=== PATIENT | female | born 1950 | race Caucasian/White ===

== ENCOUNTER 2019-07-24 08:21 | Emergency (ER) | payer OTHER, BC ==
[2019-07-24] MEDS ORDERED: Acetaminophen/HYDROcodone 325-5 MG Tab PO ONE (08:35)
--- NOTE | 2019-07-24 09:16 | CT ---
[id number] CT/CT Cervical Spine WO IV EXAM: NONCONTRAST CERVICAL SPINE CT INDICATION: FALL COMPARISON: None. DISCUSSION: Straightening of the cervical lordosis. 2 mm spondylolisthesis C6-C7. The vertebral bodies are otherwise normal in height and alignment. No fracture or suspicious osseous lesion is identified. Moderate degenerative disc disease C3-C4 and C5-C6 with mild to moderate changes at the remaining disc levels. Mild to moderate facet arthropathy throughout the cervical spine. 7 mm noncalcified nodular opacity abutting the right upper lobe pleura (image 170 series 2). IMPRESSION: 1. No evidence of acute cervical spine trauma. Germán Ordaz MD 07/24/19 0916 Thank you for allowing us to participate in the care of your patient.
--- NOTE | 2019-07-24 09:18 | CT ---
[id number] CT/CT Head WO IV EXAM: CT Head WO IV CLINICAL DATA: FALL COMPARISON STUDY: None FINDINGS: No intracranial hemorrhage, extra-axial fluid collection, mass, or acute ischemia. Generalized parenchymal atrophy with scattered areas of nonspecific white matter disease, commonly seen as sequela of chronic microvascular ischemia. Right frontal scalp hematoma without underlying calvarial fracture. Paranasal sinuses and mastoid air cells are clear. IMPRESSION: No acute intracranial findings. Audie Liu DO 07/24/19 0917 Thank you for allowing us to participate in the care of your patient.
--- NOTE | 2019-07-24 11:06 | EDM.PDOC ---
ED HPI GENERAL MEDICAL PROBLEM - General Chief Complaint: General Stated Complaint: FALL Time Seen by Provider: 07/24/19 08:47 Source of Information: Reports: Patient History Limitations: Reports: No Limitations - History of Present Illness INITIAL COMMENTS - FREE TEXT/NARRATIVE: Pt. presents to ER with complaints of head and facial pain. Pt. states that she slipped on the tile coming into work today, striking the R side of her head/ face on the door jam. Denies any LOC. She is not anticoagulated. Pt. is also experiencing some mid posterior/R lateral neck pain as well. Denies any injury elsewhere. Pt. denies any acute vision loss or change. No numbness/tingling in extremities. No problems with speech or ambulation. Denies any nausea or vomiting. Onset: Today Location: Reports: Head, Face Quality: Reports: Ache, Throbbing Associated Symptoms: Reports: Headaches. Denies: Confusion, Chest Pain, Malaise , Nausea/Vomiting, Rash, Shortness of Breath, Syncope, Weakness Head Pain Score (Numeric/FACES): 4 - Related Data Allergies Allergy/AdvReac Type Severity Reaction Status Date / Time No Known Allergies Allergy Verified 07/24/19 08:40 Home Meds: Home Meds Citalopram [Citalopram HBr] 40 mg PO DAILY 07/24/19 [History] hydroCHLOROthiazide [Hydrochlorothiazide] 25 mg PO DAILY 07/24/19 [History] Past Medical History - Past Surgical History GI Surgical History: Reports: Bariatric Procedure Social & Family History - Tobacco Use Smoking Status *Q: Never Smoker ED ROS GENERAL - Review of Systems Review Of Systems: See Below Constitutional: Reports: No Symptoms HEENT: Reports: Other (see above) Respiratory: Reports: No Symptoms Cardiovascular: Reports: No Symptoms Endocrine: Reports: No Symptoms GI/Abdominal: Reports: No Symptoms : Reports: No Symptoms Musculoskeletal: Reports: Neck Pain Skin: Reports: No Symptoms Neurological: Reports: Headache Psychiatric: Reports: No Symptoms Hematologic/Lymphatic: Reports: No Symptoms Immunologic: Reports: No Symptoms ED EXAM, GENERAL - Physical Exam Exam: See Below Exam Limited By: No Limitations General Appearance: Alert, WD/WN, No Apparent Distress Eye Exam: Bilateral Eye: EOMI, Normal Fundi, Normal Inspection, PERRL Nose: Normal Inspection, No Blood Throat/Mouth: Normal Inspection, Normal Lips, Normal Teeth, Normal Voice, No Airway Compromise Head: Other (large hematoma to R temporal area with adjacent, 1 cm superficial laceration above eyebrow.) Neck: Normal Inspection, Supple, Non-Tender, Full Range of Motion Extremities: Normal Inspection, Normal Range of Motion, Non-Tender, No Pedal Edema, Normal Capillary Refill Neurological: Alert, Oriented, CN II-XII Intact, Normal Cognition, Normal Gait, Normal Reflexes, No Motor/Sensory Deficits Skin Exam: Warm, Dry, Intact, Normal Color, No Rash ED GENERAL MEDICAL PROCEDURES - Laceration/Wound Repair Right Forehead Lac/wound length in cm: 1 Appearance: Superficial Distal NVT: Neuro & Vascular Intact Skin Prep: Chlorhexidine (Hibiciens), Saline Closed with: Dermabond Course - Vital Signs Last Recorded V/S: Last Vital Signs Temp 36.6 C 07/24/19 08:41 Pulse 74 07/24/19 08:41 Resp 16 07/24/19 08:41 BP 141/65 H 07/24/19 08:41 Pulse Ox 97 07/24/19 08:41 - Orders/Labs/Meds Meds: Medications Discontinued Medications Generic Name Dose Route Start Last Admin Trade Name Freq PRN Reason Stop Dose Admin Hydrocodone Bitart/Acetaminophen 1 tab 07/24/19 08:35 07/24/19 08:38 Maple 325-5 Mg PO 07/24/19 08:36 1 tab ONETIME ONE Administration - Radiology Interpretation Free Text/Narrative:: CT brain and c-spine were both negative for acute pathology. Departure - Departure Time of Disposition: 09:30 Disposition: Home, Self-Care 01 Clinical Impression: Closed head injury, Cervical strain, acute - Discharge Information Instructions: Head Injury, Adult, Tissue Adhesive Wound Care, Cervical Sprain, [id number] Referrals: PCP,Not In Area [Primary Care Provider] - Forms: ED Department Discharge Additional Instructions: Home to rest. No TV, reading, or activities requiring a lot of "brain power". Sleep and rest as much as possible. Tylenol and ibuprofen as needed for discomfort. Drink plenty of fluids. Recheck in clinic in 10-14 days, sooner if not gradually improving. - Problem List Review Problem List Initiated/Reviewed/Updated: Yes - Assessment/Plan Plan: Home to rest. No TV, reading, or activities requiring a lot of "brain power". Sleep and rest as much as possible. Tylenol and ibuprofen as needed for discomfort. Drink plenty of fluids. Recheck in clinic in 10-14 days, sooner if not gradually improving.
== END 2019-07-24 09:40 | disposition home or self-care (01) ==
LOC: VM.ED 08:21
DX: S01.81XA Laceration without foreign body of other part of head, initial encounter (principal); S16.1XXA Strain of muscle, fascia and tendon at neck level, initial encounter; W01.198A Fall on same level from slipping, tripping and stumbling with subsequent striking against other object, initial encounter
CPT/HCPCS: 12011; 70450; 72125; 99284-25; A9270-GY

== ENCOUNTER 2023-05-16 17:11 | Emergency (ER) | payer MEDICARE, OTHER ==
[2023-05-16 18:06] LABS: BASOPHILS ABSOLUTE AUTO 0.1 x10^3/uL (0.0-0.2); BASOPHILS PERCENT AUTO 0.8 % (0.2-1.2); EOSINOPHILS ABSOLUTE AUTO 0.3 x10^3/uL (0.0-0.5); EOSINOPHILS PERCENT AUTO 5.3 % (0.0-4.0); HEMATOCRIT 42.2 % (33.0-47.0); HEMOGLOBIN 14.3 g/dL (12.0-16.0); IMMATURE GRAN ABSOLUTE AUTO 0.01 x10^3/uL (0.00-0.07); LYMPHOCYTES ABSOLUTE AUTO 1.5 x10^3/uL (1.0-4.8); LYMPHOCYTES PERCENT AUTO 25.5 % (25.0-50.0); MEAN CORPUSCULAR HEMOGLOBIN 31.4 pg (26.0-32.0); MEAN CORPUSCULAR HGB CONC 33.9 g/dL (32.0-36.0); MEAN CORPUSCULAR VOLUME 92.7 fL (78.0-93.0); MONOCYTES ABSOLUTE AUTO 0.7 x10^3/uL (0.0-0.8); MONOCYTES PERCENT AUTO 11.4 % (2.0-11.0); NEUTROPHILS ABSOLUTE AUTO 3.4 x10^3/uL (1.8-7.7); NEUTROPHILS PERCENT AUTO 56.8 % (50.0-80.0); PLATELET COUNT,PLT 191 x10^3/uL (130-400); RED BLOOD CELL COUNT 4.55 x10^6/uL (4.00-5.50)
[2023-05-16] MEDS: Sodium Chloride 0.9% 10 ML Syringe FLUSH PRN (18:18)
[2023-05-16] MEDS: HYDROmorphone 0.5 MG/0.5 ML Syringe IVPUSH ONE (18:19)
[2023-05-16] MEDS: Ondansetron 4 MG/2 ML SDV IVPUSH ONE (18:19)
[2023-05-16 18:22] LABS: INR 2.6 (2.0-3.5); PTT,PARTIAL THROMBOPLSTIN TIME 39.1 SEC (23.6-33.6)
[2023-05-16] MEDS ORDERED: Iopamidol 612 MG/ML 50 ML SDV IARTIC ONE (18:27)
[2023-05-16 18:28] LABS: LACTIC ACID 0.9 mmol/L (0.4-2.0)
[2023-05-16 18:35] LABS: A/G RATIO 1.12; ALBUMIN 3.8 g/dL (3.4-5.0); ANION GAP 11.9 mmol/L (5-15); BILIRUBIN TOTAL 0.4 mg/dL (0.2-1.0); C-REACTIVE PROTEIN 0.64 mg/dL (<=0.30); CALCIUM 9.6 mg/dL (8.5-10.1); CREATININE 1.1 mg/dL (0.55-1.02); EST CRCL DRUG DOSING (CG) 40.99 mL/min; MAGNESIUM 2.2 mg/dL (1.8-2.4); PHOSPHORUS 3.6 mg/dL (2.6-4.7); POTASSIUM,K 3.9 mmol/L (3.5-5.1); PROTEIN TOTAL,TP 7.2 g/dL (6.4-8.2)
[2023-05-16 19:06] LABS: APPEARANCE,URINE CLEAR (CLEAR); BILIRUBIN,URINE NEGATIVE (NEGATIVE); COLOR,URINE YELLOW (YELLOW); GLUCOSE,URINE NEGATIVE (NEGATIVE); KETONES,URINE NEGATIVE (NEGATIVE); LEUKOCYTE ESTERASE,URINE NEGATIVE (NEGATIVE); NITRITE,URINE NEGATIVE (NEGATIVE); OCCULT BLOOD,URINE NEGATIVE (NEGATIVE); PROTEIN,URINE NEGATIVE (NEGATIVE); UROBILINOGEN,URINE 0.2 EU/dL (0.2)
[2023-05-16] MEDS ORDERED: Iopamidol 612 MG/ML 50 ML SDV IVPUSH ONE (19:12)
[2023-05-16] MEDS: Iopamidol 612 MG/ML 100 ML Bottle IVPUSH ONE (20:18)
[2023-05-16] MEDS: Iopamidol 612 MG/ML 30 ML SDV IVPUSH ONE (20:18)
[2023-05-16] MEDS: methylPREDNISolone Sodium Succinate 125 MG/2 ML SDV IVPUSH ONE (21:33)
[2023-05-16] MEDS: Take Home: Acetaminophen/HYDROcodone 325-5 MG, 5 Tab Pack PO ONE (21:37)
== END 2023-05-16 21:38 | disposition home or self-care (01) ==
LOC: VM.ED 17:11
DX: R10.10 Upper abdominal pain, unspecified (principal); M19.90 Unspecified osteoarthritis, unspecified site; E66.9 Obesity, unspecified; Z68.39 Body mass index [BMI] 39.0-39.9, adult; Z87.891 Personal history of nicotine dependence; Z88.5 Allergy status to narcotic agent; Z79.899 Other long term (current) drug therapy; Z90.49 Acquired absence of other specified parts of digestive tract
CPT/HCPCS: 36415; 71260; 74177; 80053; 81003; 83605; 83690; 83735; 84100; 84484; 85025; 85610; 85730; 86140; 93005; 96374; 96375; 99284; 99284-25; A9270-GY; J1170; J2405; J2930; J3490; Q9967

== ENCOUNTER 2023-08-02 09:32 | Day surgery (SDC) | payer MEDICARE, OTHER ==
[2023-08-02] MEDS: Lactated Ringers 1,000 ML IV SCH (09:59)
[2023-08-02] MEDS ORDERED: fentaNYL 100 MCG/2 ML SDV ONE (10:47)
[2023-08-02] MEDS ORDERED: Propofol 200 MG/20 ML SDV ONE ×3 (10:47→11:36)
== END 2023-08-02 12:45 | disposition home or self-care (01) ==
LOC: VM.SDS 09:32
PROVIDERS: ATTEND Family Medicine
DX: Z12.11 Encounter for screening for malignant neoplasm of colon (principal); D12.2 Benign neoplasm of ascending colon; Q43.8 Other specified congenital malformations of intestine; K64.4 Residual hemorrhoidal skin tags; E78.00 Pure hypercholesterolemia, unspecified; F32.A Depression, unspecified; G47.00 Insomnia, unspecified; E66.01 Morbid (severe) obesity due to excess calories; Z86.718 Personal history of other venous thrombosis and embolism; Z98.890 Other specified postprocedural states; Z98.84 Bariatric surgery status; Z79.899 Other long term (current) drug therapy; Z88.5 Allergy status to narcotic agent; Z68.41 Body mass index [BMI] 40.0-44.9, adult
CPT/HCPCS: 00812; 88305; J2704; J3010; J7120